=== PATIENT | female | born 1990 | race African-American/Black ===

== ENCOUNTER 2021-04-20 17:22 | Emergency (ER) | payer OTHER ==
[~2021-04-20 17:22] MED LIST: Bupivacaine 0.5% 10 ML VIAL ONE
[2021-04-20] MEDS ORDERED: traMADol HCl 50 MG TAB ONE (18:07)
[2021-04-20] MEDS ORDERED: Penicillin V Potassium 250 MG TAB ONE (18:08)
== END 2021-04-20 18:18 | disposition home or self-care (01) ==
LOC: NAV ERS 17:22
DX: K04.7 Periapical abscess without sinus (principal); F17.210 Nicotine dependence, cigarettes, uncomplicated
CPT/HCPCS: 41800; J3490

== ENCOUNTER 2024-05-14 17:02 | Emergency (ER) | payer OTHER ==
[2024-05-14] MEDS ORDERED: Ketorolac Tromethamine 60 MG/2 ML VIAL ONE (17:18)
[2024-05-14] MEDS ORDERED: Amoxicillin/Potassium Clav 875 MG TAB ONE (17:18)
== END 2024-05-14 17:45 | disposition home or self-care (01) ==
LOC: NAV ERS 17:02
DX: K04.7 Periapical abscess without sinus (principal); K02.9 Dental caries, unspecified; F17.210 Nicotine dependence, cigarettes, uncomplicated
CPT/HCPCS: J1885

== ENCOUNTER 2024-11-01 15:49 | Emergency (ER) | payer OTHER ==
[2024-11-01] MEDS ORDERED: Ketorolac Tromethamine 30 MG (1 mL) VIAL ONE (16:14)
[2024-11-01] MEDS ORDERED: Lidocaine Viscous Sol 2% 15 ml UD Cup ONE (17:01)
== END 2024-11-01 17:12 | disposition home or self-care (01) ==
LOC: NAV ERS 15:49
DX: J02.9 Acute pharyngitis, unspecified (principal); F17.210 Nicotine dependence, cigarettes, uncomplicated
CPT/HCPCS: 87081; 87430; 96374; J1885